=== PATIENT | male | born 1980 | race Caucasian/White ===

== ENCOUNTER 2017-08-07 18:14 | Emergency (ER) | payer BC ==
--- NOTE | 2017-08-07 18:55 | EDM.PDOC ---
ED HPI GENERAL MEDICAL PROBLEM - General Chief Complaint: Abdominal Pain Stated Complaint: [id number] EXTREME STOMACH PAIN Time Seen by Provider: 08/07/17 18:50 Source of Information: Reports: Patient History Limitations: Reports: No Limitations - History of Present Illness INITIAL COMMENTS - FREE TEXT/NARRATIVE: states woke up with epiG pain last night unable to sleep till 10am. been having pain with N/V on-off since then last vomiting 3 hours ago. able to hold down some crackers today. also gives h/o low H/H and needed transfusion. was told low H/H due to alcoholism and pancreatitis. just stopped drinking 3 weeks ago. Middle Anterior Abdomen Pain Score (Numeric/FACES): 3 - Related Data Allergies Allergy/AdvReac Type Severity Reaction Status Date / Time No Known Allergies Allergy Verified 07/28/17 17:15 Home Meds: Home Meds Metoprolol Succinate 25 mg PO DAILY 07/28/17 [History] Omeprazole Magnesium [Prilosec Otc] 20 mg PO DAILY 07/28/17 [History] traZODone HCl [Trazodone HCl] 50 mg PO DAILY 07/28/17 [History] Past Medical History - Past Health History Medical/Surgical History: Denies Medical/Surgical History Cardiovascular History: Reports: Hypertension Gastrointestinal History: Reports: GERD Psychiatric History: Reports: Addiction, Other (See Below) Other Psychiatric History: ETOH abuse history - Infectious Disease History Infectious Disease History: Reports: Chicken Pox Social & Family History - Family History Family Medical History: Noncontributory - Tobacco Use Smoking Status *Q: Heavy Tobacco Smoker Years of Tobacco use: 15 Packs/Tins Daily: 0.5 - Caffeine Use Caffeine Use: Reports: Soda ED ROS GENERAL - Review of Systems Review Of Systems: ROS reveals no pertinent complaints other than HPI. ED EXAM, GI/ABD - Physical Exam Exam: See Below Exam Limited By: No Limitations General Appearance: Alert, WD/WN, Mild Distress, Other (discomfort) Ears: Hearing Grossly Normal Throat/Mouth: Normal Voice, No Airway Compromise Head: Atraumatic Neck: Non-Tender, Full Range of Motion Respiratory/Chest: No Respiratory Distress Cardiovascular: Regular Rate, Rhythm GI/Abdominal Exam: Soft, Tender, Other (minor epig discomfort, BS hyper). No: Distended, Guarding, Rigid, Rebound Neurological: Alert, Oriented, Normal Cognition, Normal Gait, No Motor/Sensory Deficits Psychiatric: Normal Affect, Normal Mood Skin Exam: Warm, Dry, Normal Color Lymphatic: No Adenopathy Course - Vital Signs Last Recorded V/S: Last Vital Signs Temp 37.7 C 08/07/17 18:30 Pulse 105 H 08/07/17 18:30 Resp 20 08/07/17 18:30 BP 139/78 08/07/17 18:30 Pulse Ox 100 08/07/17 18:30 - Orders/Labs/Meds Orders: Active Orders 24 hr Category Date Time Status Sodium Chloride 0.9% [Normal Saline] 1,000 ml Med 08/07/17 20:00 Active IV ASDIRECTED Medication Orders Sodium Chloride (Normal Saline) 1,000 mls @ 250 mls/hr IV ASDIRECTED SHANNAN Last Admin: 08/07/17 20:16 Dose: 250 mls/hr Labs: Laboratory Tests 08/07/17 08/07/17 Range/Units 18:56 18:56 WBC 7.0 (5.0-10.0) 10^3/uL RBC 2.88 L (4.6-6.2) 10^6/uL Hgb 6.5 L* D (14.0-18.0) g/dL Hct 23.5 L (40.0-54.0) % MCV 81.6 (80-100) fL MCH 22.6 L (27.0-34.0) pg MCHC 27.7 L (33.0-35.0) g/dL Plt Count 463 H (150-450) 10^3/uL Neut % (Auto) 72.7 (42.2-75.2) % Lymph % (Auto) 13.4 L (20.5-50.1) % [place] % (Auto) 11.5 H (2-8) % Eos % (Auto) 1.7 (1.0-3.0) % Baso % (Auto) 0.7 (0.0-1.0) % Sodium 136 (135-145) mmol/L Potassium 3.4 L (3.6-5.0) mmol/L Chloride 101 (101-111) mmol/L Carbon Dioxide 23.0 (21.0-31.0) mmol/L Anion Gap 15.4 BUN 12 (7-18) mg/dL Creatinine 0.7 (0.6-1.3) mg/dL Est Cr Clr Drug Dosing 143.08 mL/min Estimated GFR (MDRD) > 60 BUN/Creatinine Ratio 17.14 Glucose 112 H (74-105) mg/dL Calcium 9.8 (8.4-10.2) mg/dl Total Bilirubin 0.3 (0.2-1.0) mg/dL AST 17 (10-42) IU/L ALT 14 (10-60) IU/L Alkaline Phosphatase 41 L (42-121) IU/L Total Protein 7.1 (6.7-8.2) g/dl Albumin 4.2 (3.2-5.5) g/dl Globulin 2.9 Albumin/Globulin Ratio 1.45 Amylase 92 (28-100) U/L Lipase 85 H (22-51) U/L Meds: Medications Generic Name Dose Route Start Last Admin Trade Name Freq PRN Reason Stop Dose Admin Sodium Chloride 1,000 mls @ 250 mls/hr 08/07/17 20:00 08/07/17 20:16 Normal Saline IV 250 mls/hr ASDIRECTED SHANNAN Administration Discontinued Medications Generic Name Dose Route Start Last Admin Trade Name Freq PRN Reason Stop Dose Admin Sodium Chloride 1,000 mls @ 999 mls/hr 08/07/17 18:56 08/07/17 19:07 Normal Saline IV 08/07/17 19:56 999 mls/hr .BOLUS ONE Administration Iopamidol 75 ml 08/07/17 19:44 08/07/17 19:50 Isovue-300 (61%) IVPUSH 08/07/17 19:45 75 ml ONETIME ONE Administration Ondansetron HCl 4 mg 08/07/17 18:56 08/07/17 19:09 Zofran IV 08/07/17 18:57 4 mg ONETIME ONE Administration - Re-Assessments/Exams Free Text/Narrative Re-Assessment/Exam: 08/07/17 21:[address] Gibson who rec' ER eval' Dr Muro ER @ kindly accept pt Departure - Departure Time of Disposition: 21:05 Disposition: DC/Tfer to Acute Hospital 02 Condition: Good Clinical Impression: Aneurysm of pancreaticoduodenal artery, Low hemoglobin - Discharge Information Forms: Interfacility Transfer EMTALA - My Orders Last 24 Hours: My Active Orders 08/07/17 20:00 Sodium Chloride 0.9% [Normal Saline] 1,000 ml IV ASDIRECTED - Assessment/Plan Last 24 Hours: My Active Orders 08/07/17 20:00 Sodium Chloride 0.9% [Normal Saline] 1,000 ml IV ASDIRECTED
[2017-08-07] MEDS ORDERED: Sodium Chloride 0.9% 1,000 ML IV ONE (18:56)
[2017-08-07] MEDS ORDERED: Ondansetron 4 MG/2 ML SDV IV ONE (18:56)
[2017-08-07 19:28] LABS: CHLORIDE,CL 101 mmol/L (101-111); SODIUM,NA 136 mmol/L (135-145)
[2017-08-07] MEDS ORDERED: Iopamidol 612 MG/ML 75 ML Bottle IVPUSH ONE (19:44)
[2017-08-07] MEDS ORDERED: Sodium Chloride 0.9% 1,000 ML IV SCH (20:00)
== END 2017-08-07 21:32 ==
LOC: DL.ED 18:14
DX: I72.8 Aneurysm of other specified arteries (principal); D64.9 Anemia, unspecified; I10 Essential (primary) hypertension; F17.210 Nicotine dependence, cigarettes, uncomplicated; Z79.899 Other long term (current) drug therapy
CPT/HCPCS: 36415; 74177; 80053; 82150; 83690; 85025; 96361; 96374; 99285; J2405; J7030; Q9967

== ENCOUNTER 2018-04-03 08:12 | Emergency (ER) | payer BC, MEDICAID ==
--- NOTE | 2018-04-03 08:33 | EDM.PDOC ---
ED HPI GENERAL MEDICAL PROBLEM - General Chief Complaint: Abdominal Pain Stated Complaint: STOMACH ISSUES Time Seen by Provider: 04/03/18 08:33 Source of Information: Reports: Patient, RN, RN Notes Reviewed History Limitations: Reports: No Limitations - History of Present Illness INITIAL COMMENTS - FREE TEXT/NARRATIVE: Pt to ER with c/o epigastric pain. Patient states the pain began abruptly at 0100 this morning. He states he was drinking some alcohol last evening, with the last drink being at midnight. Patient states the pain is a dull ache, feels like a know in the epigastric area. Patient admits to nausea and vomiting. Denies any diarrhea. Denies noticing blood in the vomit or the stool. Patient states last BM was last evening about 1800 and was normal for him. Patient denies fever or chills, chest pain or SOB. Patient states he takes Prilosec on a daily basis, and that he used TUMS during the night which helped for a bit, until he vomited. Onset: Sudden Onset Date: 04/03/18 Onset Time: 01:00 Duration: Constant Location: Reports: Abdomen Quality: Reports: Ache, Dull Severity: Moderate Improves with: Reports: Medication (tums) Worsens with: Reports: None Associated Symptoms: Reports: Loss of Appetite, Nausea/Vomiting Treatments PARTS CATALOGER: Reports: Home Treatments Epigastric Pain Score (Numeric/FACES): 6 - Related Data Allergies Allergy/AdvReac Type Severity Reaction Status Date / Time No Known Allergies Allergy Verified 04/03/18 08:31 Home Meds: Home Meds Metoprolol Succinate 25 mg PO DAILY 07/28/17 [History] Omeprazole Magnesium [Prilosec Otc] 20 mg PO DAILY 07/28/17 [History] traZODone HCl [Trazodone HCl] 50 mg PO DAILY PRN 07/28/17 [History] Past Medical History - Past Health History Medical/Surgical History: Denies Medical/Surgical History Cardiovascular History: Reports: Hypertension Gastrointestinal History: Reports: GERD Psychiatric History: Reports: Addiction, Other (See Below) Other Psychiatric History: ETOH abuse history - Infectious Disease History Infectious Disease History: Reports: Chicken Pox Social & Family History - Family History Family Medical History: Noncontributory - Caffeine Use Caffeine Use: Reports: Soda ED ROS GENERAL - Review of Systems Review Of Systems: ROS reveals no pertinent complaints other than HPI. ED EXAM, GI/ABD - Physical Exam Exam: See Below Exam Limited By: No Limitations General Appearance: Alert, WD/WN, No Apparent Distress Eyes: Bilateral: Normal Appearance, EOMI Ears: Normal External Exam, Hearing Grossly Normal Nose: Normal Inspection Throat/Mouth: Normal Inspection, Normal Voice, No Airway Compromise Head: Atraumatic, Normocephalic Neck: Normal Inspection, Supple, Non-Tender, Full Range of Motion Respiratory/Chest: No Respiratory Distress, Lungs Clear, Normal Breath Sounds, No Accessory Muscle Use, Chest Non-Tender Cardiovascular: Normal Peripheral Pulses, Regular Rate, Rhythm, No Edema, No Gallop, No JVD, No Murmur, No Rub GI/Abdominal Exam: Normal Bowel Sounds, Rigid (epigastrum), Tender (epigastrum) (Male) Exam: Deferred Rectal (Males) Exam: Deferred Back Exam: Normal Inspection, Full Range of Motion Extremities: Normal Inspection, Normal Range of Motion, Non-Tender, No Pedal Edema, Normal Capillary Refill Neurological: Alert, Oriented, CN II-XII Intact, Normal Cognition, Normal Gait, Normal Reflexes, No Motor/Sensory Deficits Psychiatric: Normal Affect, Normal Mood, Anxious Skin Exam: Warm, Dry, Intact, Normal Color, No Rash Lymphatic: No Adenopathy Course - Vital Signs Last Recorded V/S: Last Vital Signs Temp 97.2 F 04/03/18 11:16 Pulse 66 04/03/18 11:16 Resp 16 04/03/18 11:16 BP 157/92 H 04/03/18 11:16 Pulse Ox 98 04/03/18 11:16 - Orders/Labs/Meds Orders: Active Orders 24 hr Category Date Time Status Peripheral IV Care [RC] . DIRECTED Care 04/03/18 08:42 Active Peripheral IV Insertion Adult [OM.PC] Stat Oth 04/03/18 08:42 Ordered Labs: Laboratory Tests 04/03/18 04/03/18 04/03/18 Range/Units 08:52 08:52 08:52 WBC 4.8 L (5.0-10.0) 10^3/uL RBC 3.99 L (4.6-6.2) 10^6/uL Hgb 9.3 L D (14.0-18.0) g/dL Hct 30.2 L (40.0-54.0) % MCV 75.7 L D (80-100) fL MCH 23.3 L (27.0-34.0) pg MCHC 30.8 L (33.0-35.0) g/dL Plt Count 214 D (150-450) 10^3/uL Neut % (Auto) 72.9 (42.2-75.2) % Lymph % (Auto) 14.7 L (20.5-50.1) % [place] % (Auto) 9.5 H (2-8) % Eos % (Auto) 2.3 (1.0-3.0) % Baso % (Auto) 0.6 (0.0-1.0) % Sodium 140 (135-145) mmol/L Potassium 3.2 L (3.6-5.0) mmol/L Chloride 98 L (101-111) mmol/L Carbon Dioxide 28.0 (21.0-31.0) mmol/L Anion Gap 17.2 BUN 7 (7-18) mg/dL Creatinine 1.0 (0.6-1.3) mg/dL Est Cr Clr Drug Dosing 98.62 mL/min Estimated GFR (MDRD) > 60 BUN/Creatinine Ratio 7.00 Glucose 124 H (74-105) mg/dL Calcium 10.5 H (8.4-10.2) mg/dl Total Bilirubin 0.5 (0.2-1.0) mg/dL AST 17 (10-42) IU/L ALT 12 (10-60) IU/L Alkaline Phosphatase 93 (42-121) IU/L Total Protein 7.6 (6.7-8.2) g/dl Albumin 4.2 (3.2-5.5) g/dl Globulin 3.4 Albumin/Globulin Ratio 1.24 Amylase 138 H (28-100) U/L Lipase 187 H (22-51) U/L Urine Color (YELLOW) Urine Appearance (CLEAR) Urine pH (5.0-9.0) Ur Specific [place] (1.005-1.030) Urine Protein (NEGATIVE) Urine Glucose (UA) (NEGATIVE) Urine Ketones (NEGATIVE) Urine Occult Blood (NEGATIVE) Urine Nitrite (NEGATIVE) Urine Bilirubin (NEGATIVE) Urine Urobilinogen (0.2-1.0) mg/dL Ur Leukocyte Esterase (NEGATIVE) Urine RBC /HPF Urine WBC (0-5/HPF) /HPF Ur Epithelial Cells /HPF Amorphous Sediment (0/HPF) /HPF Urine Bacteria (0-FEW/HPF) /HPF Granular Casts /LPF Urine Mucus /LPF Urine Opiates Screen (NEGATIVE) Ur Oxycodone Screen (NEGATIVE) Urine Methadone Screen (NEGATIVE) Ur Barbiturates Screen (NEGATIVE) U Tricyclic Antidepress (NEGATIVE) Ur Phencyclidine Scrn (NEGATIVE) Ur Amphetamine Screen (NEGATIVE) U Methamphetamines Scrn (NEGATIVE) Urine MDMA Screen (NEGATIVE) U Benzodiazepines Scrn (NEGATIVE) Urine Cocaine Screen (NEGATIVE) U Marijuana (THC) Screen (NEGATIVE) Ethyl Alcohol 107 mg/dL 04/03/18 04/03/18 Range/Units 09:28 09:28 WBC (5.0-10.0) 10^3/uL RBC (4.6-6.2) 10^6/uL Hgb (14.0-18.0) g/dL Hct (40.0-54.0) % MCV (80-100) fL MCH (27.0-34.0) pg MCHC (33.0-35.0) g/dL Plt Count (150-450) 10^3/uL Neut % (Auto) (42.2-75.2) % Lymph % (Auto) (20.5-50.1) % [place] % (Auto) (2-8) % Eos % (Auto) (1.0-3.0) % Baso % (Auto) (0.0-1.0) % Sodium (135-145) mmol/L Potassium (3.6-5.0) mmol/L Chloride (101-111) mmol/L Carbon Dioxide (21.0-31.0) mmol/L Anion Gap BUN (7-18) mg/dL Creatinine (0.6-1.3) mg/dL Est Cr Clr Drug Dosing mL/min Estimated GFR (MDRD) BUN/Creatinine Ratio Glucose (74-105) mg/dL Calcium (8.4-10.2) mg/dl Total Bilirubin (0.2-1.0) mg/dL AST (10-42) IU/L ALT (10-60) IU/L Alkaline Phosphatase (42-121) IU/L Total Protein (6.7-8.2) g/dl Albumin (3.2-5.5) g/dl Globulin Albumin/Globulin Ratio Amylase (28-100) U/L Lipase (22-51) U/L Urine Color Yellow (YELLOW) Urine Appearance Cloudy (CLEAR) Urine pH 7.0 (5.0-9.0) Ur Specific [place] 1.025 (1.005-1.030) Urine Protein 30 H (NEGATIVE) Urine Glucose (UA) Negative (NEGATIVE) Urine Ketones Negative (NEGATIVE) Urine Occult Blood Negative (NEGATIVE) Urine Nitrite Negative (NEGATIVE) Urine Bilirubin Negative (NEGATIVE) Urine Urobilinogen 0.2 (0.2-1.0) mg/dL Ur Leukocyte Esterase Negative (NEGATIVE) Urine RBC Not seen /HPF Urine WBC Not seen (0-5/HPF) /HPF Ur Epithelial Cells Few /HPF Amorphous Sediment Many (0/HPF) /HPF Urine Bacteria Rare (0-FEW/HPF) /HPF Granular Casts Moderate /LPF Urine Mucus Few H /LPF Urine Opiates Screen Negative (NEGATIVE) Ur Oxycodone Screen Negative (NEGATIVE) Urine Methadone Screen Negative (NEGATIVE) Ur Barbiturates Screen Negative (NEGATIVE) U Tricyclic Antidepress Negative (NEGATIVE) Ur Phencyclidine Scrn Negative (NEGATIVE) Ur Amphetamine Screen Negative (NEGATIVE) U Methamphetamines Scrn Negative (NEGATIVE) Urine MDMA Screen Negative (NEGATIVE) U Benzodiazepines Scrn Negative (NEGATIVE) Urine Cocaine Screen Negative (NEGATIVE) U Marijuana (THC) Screen Positive H (NEGATIVE) Ethyl Alcohol mg/dL stool for occult blood: Negative Meds: Medications Discontinued Medications Generic Name Dose Route Start Last Admin Trade Name Freq PRN Reason Stop Dose Admin Famotidine 20 mg 04/03/18 08:42 04/03/18 08:58 Pepcid IVPUSH 04/03/18 08:43 20 mg ONETIME ONE Administration Hydromorphone HCl 1 mg 04/03/18 13:03 04/03/18 13:12 Dilaudid IVPUSH 04/03/18 13:04 1 mg ONETIME ONE Administration Hydromorphone HCl 1 mg 04/03/18 15:18 04/03/18 15:26 Dilaudid IVPUSH 04/03/18 15:19 1 mg ONETIME ONE Administration Sodium Chloride 1,000 mls @ 999 mls/hr 04/03/18 12:56 04/03/18 14:15 Normal Saline IV 04/03/18 13:56 Infused .BOLUS ONE Infusion Iopamidol 75 ml 04/03/18 09:38 04/03/18 09:47 Isovue-300 (61%) IVPUSH 04/03/18 09:39 75 ml ONETIME ONE Administration Ondansetron HCl 4 mg 04/03/18 13:49 04/03/18 13:53 Zofran IV 04/03/18 13:50 4 mg ONETIME ONE Administration Sodium Chloride 10 ml 04/03/18 08:42 04/03/18 15:25 Saline Flush FLUSH 10 ml ASDIRECTED PRN Administration Keep Vein Open - Radiology Interpretation Free Text/Narrative:: CT Abdomen/Pelvis with contrast: Probable nonobstructing choledocholithiasis. Large new midepigastric hematoma ( evidence of adjacent surgery. Fatty Liver. See rad report - Re-Assessments/Exams Free Text/Narrative Re-Assessment/Exam: 04/03/18 13:29 Discussed patient case with Dr. Payne at [facility] who states she feels the patient would need an ERCP or EUS with possible stent. [facility] will not have GI services until Friday. She feels the patient would be better served at [place]. Patient case was discussed with Dr. Mao, GI at [facility]. He states he feels the patient has an acute pancreatitis and does not necessarily need to be transferred to [place], but that they would gladly accept the patient under a hospitalist. Patient case was discussed with Dr. Gary at [facility], who agreed to accept the patient for transfer. Departure - Departure Time of Disposition: 15:56 Disposition: DC/Tfer to [facility] 02 Condition: Fair Clinical Impression: Epigastric pain, Aneurysm of pancreaticoduodenal artery, Low hemoglobin - Discharge Information *PRESCRIPTION DRUG MONITORING PROGRAM REVIEWED*: No *COPY OF PRESCRIPTION DRUG MONITORING REPORT IN PATIENT JIMMY: No Referrals: PCP,None [Primary Care Provider] - Forms: ED Department Discharge, Interfacility Transfer [place] - My Orders Last 24 Hours: My Active Orders 04/03/18 08:42 Peripheral IV Care [RC] . DIRECTED Peripheral IV Insertion Adult [OM.PC] Stat - Assessment/Plan Last 24 Hours: My Active Orders 04/03/18 08:42 Peripheral IV Care [RC] . DIRECTED Peripheral IV Insertion Adult [OM.PC] Stat
[2018-04-03] MEDS ORDERED: Famotidine 20 MG/2 ML SDV IVPUSH ONE (08:42)
[2018-04-03] MEDS: Sodium Chloride 0.9% 10 ML Syringe FLUSH PRN ×3 (08:58→15:25)
[2018-04-03 09:18] LABS: ANION GAP 17.2; CHLORIDE,CL 98 mmol/L (101-111); SODIUM,NA 140 mmol/L (135-145)
[2018-04-03] MEDS ORDERED: Iopamidol 612 MG/ML 75 ML Bottle IVPUSH ONE (09:38)
--- NOTE | 2018-04-03 11:12 | CT ---
Clinical history: 37-year-old hypertensive 155 pound male with abdominal pain reported on previous CT scan abdomen 07 Aug 2017 to have "ill-definition/ductal dilatation of the pancreas; and 2 cm diameter pseudoaneurysm pancreaticoduodenal artery possibly secondary to chronic pancreatitis, unstable". Surgery July 2017 this afebrile patient with a WBC of 4800 and abnormally elevated serum amylase/lipase and abnormally low hemoglobin (9.3 mg (. Reevaluate please. Scan technique: Volume acquisition of data from the abdomen and pelvis obtained without oral contrast but during/after intravenous administration 75 cc nonionic Isovue contrast (2.5 cc/s via injector) while the patient was lying supine on the Siemens multi slice scanner [place], [place]. All data archived in the PACS system for storage, reformatting axial/sagittal/coronal planes and study. Interpretation: Abnormal. 1. New cluster of surgical duane midepigastrium immediately anterior to the upper abdominal aorta below origin renal arteries. 2. *Huge (4.5 x 5.5 cm diameter) low attenuation near water density anterior midepigastric "mass" (probably hematoma, although pancreatic phlegmon a differential consideration) head of the pancreas with associated abnormal pancreatic duct dilatation. 3. Apparent gallstone RUQ that has moved from the lumen of the gallbladder (07 Aug 2017) to the proximal common bile duct. 4. No intrahepatic biliary duct dilatation this large fatty liver. Stomach, spleen, tail of pancreas and adrenal glands unremarkable. 5. Normal reniform size axis and configuration. No sign of renal cortical mass lesion, nephrolithiasis or obstructive uropathy. Symmetrically distended normal appearing urinary bladder. No ascites. No sign of mechanical bowel obstruction. 6. Normal caliber aortoiliac vessels. No aneurysm or dissection. Chronic L5-S1 disc disease. Spondylosis lumbar spine. CONCLUSION: Probable nonobstructing choledocholithiasis. Large new midepigastric hematoma (evidence of adjacent surgery). Fatty liver.
[2018-04-03] MEDS ORDERED: Sodium Chloride 0.9% 1,000 ML IV ONE (12:56)
[2018-04-03] MEDS ORDERED: HYDROmorphone 1 MG/ML Syringe IVPUSH ONE ×2 (13:03→15:18)
[2018-04-03] MEDS ORDERED: Ondansetron 4 MG/2 ML SDV IV ONE (13:49)
== END 2018-04-03 15:45 ==
LOC: DL.ED 08:12
DX: I72.8 Aneurysm of other specified arteries (principal); D64.9 Anemia, unspecified; I10 Essential (primary) hypertension; K21.9 Gastro-esophageal reflux disease without esophagitis; Z79.899 Other long term (current) drug therapy
CPT/HCPCS: 36415; 74177; 80053; 80305; 81001; 82150; 82272; 83690; 85025; 96365; 96375; 96376; 99285; G0480; J1170; J2405; J3490; J7030; Q9967

== ENCOUNTER 2018-05-14 06:53 | Day surgery (SDC) | payer MEDICAID ==
[~2018-05-14 06:53] MED LIST: Dextrose 5%-0.45% NaCl 1,000 ML IV SCH; Midazolam 1 MG/ML 2 ML SDV ONE; Sodium Chloride 0.9% 10 ML Syringe FLUSH PRN; fentaNYL 100 MCG/2 ML SDV ONE
[2018-05-14] MEDS ORDERED: Midazolam 1 MG/ML 2 ML SDV IV ONE ×3 (06:54→08:15)
[2018-05-14] MEDS ORDERED: fentaNYL 100 MCG/2 ML SDV IV ONE ×3 (06:54→08:14)
--- NOTE | 2018-05-14 13:40 | OR ---
DATE: 05/14/2018 PROCEDURE: Esophagogastroduodenoscopy and multiple pinch biopsies. INSTRUMENT USED: [id number]-HQ190 Olympus video panendoscope. PREMEDICATIONS: No oral topical anesthesia used. Fentanyl 100 mcg intravenous, Versed 2 mg intravenous. Nasal O2 cannula. The procedure was done under pulse oximetry, BP recording, and court recording monitor. INDICATION: The patient with previous alcoholism and iron-deficiency anemia, unexplained and not responsive to medical measures. Esophagogastroduodenoscopy is performed for detection of any active erosive lesions, Whitten esophagus and/or malignancy also under consideration. H. pylori status to be determined, small bowel biopsies to be obtained for celiac disease if indicated, endoscopic hemostasis therapy if needed. DESCRIPTION OF PROCEDURE: The scope was passed with ease. Adequate visualization of the esophagus was made from proximal to distal areas. No upper esophageal lesions identified. No distal esophageal stricture. No uphill or downhill esophageal varices. No Madeline-Godwin tear. No evidence of erosive esophagitis by Bowman criteria. No esophageal polyp or tumor mass identified. Z-line was seen at around 39 cm distal to the oral verge, configuration consistent with grade 1 by ZAP classification. No proximal gastric varices noted. Gastric fundus examination by retroflexion showed no polypoid lesions. The examination of the gastric mucosa was a bit limited due to the presence of some solid food material that could not be aspirated clear. No gastric ulcer, malignant mass, or vascular ectasia identified. Duodenal bulb showed no ulcer. Visualized second part of the duodenum was unremarkable. Multiple pinch biopsies, 4 in number, were taken from different areas of the second part of the duodenum and tissues were also obtained from the duodenal bulb at 9 o'clock and 12 o'clock positions and sent for any histopathologic evidence of celiac disease. Multiple pinch biopsies were also taken from the gastric antrum and proximal body and sent for PyloriTek test for H. pylori and histopathology. No bleeding was noted from any of the visualized areas at the completion of examination. Photographs were taken of the duodenal bulb, gastric antrum, fundus, and distal esophagus. IMPRESSION: Gastric food retention. The patient tolerated the procedure well. [facility] /[id number]
== END 2018-05-14 10:27 | disposition home or self-care (01) ==
LOC: DL.ENDO 06:53
PROVIDERS: ATTEND Internal Medicine Gastroenterology
DX: D50.9 Iron deficiency anemia, unspecified (principal); K31.89 Other diseases of stomach and duodenum; K86.2 Cyst of pancreas; K86.1 Other chronic pancreatitis
CPT/HCPCS: 43239; 87077; J2250; J3010; J7042

== ENCOUNTER 2020-05-07 11:58 | Emergency (ER) | payer BC, MEDICAID ==
[2020-05-07] MEDS ORDERED: Ketorolac 30 MG/ML SDV IM ONE (12:35)
--- NOTE | 2020-05-07 12:43 | EDM.PDOC ---
ED HPI GENERAL MEDICAL PROBLEM - General Chief Complaint: Back Pain or Injury Stated Complaint: LOWER BACK PAIN Time Seen by Provider: 05/07/20 12:38 Source of Information: Reports: Patient History Limitations: Reports: No Limitations - History of Present Illness INITIAL COMMENTS - FREE TEXT/NARRATIVE: This 39 yo male patient reports to the ED with left lower lateral back pain. The patient reports he has been working with a chiropractor over he past month and was feeling pretty good until yesterday morning. Yesterday morning, the patient reports he sneezed and has been having intermittent lower back pain since that time. The patient did take ibuprofen yesterday with some symptom relief, but was encouraged to be seen by family today. Onset Date: 05/06/20 Duration: Constant Location: Reports: Back (left lateral lower back) Quality: Reports: Ache, Dull Severity: Moderate Improves with: Reports: None Worsens with: Reports: None Context: Reports: Other Associated Symptoms: Reports: No Other Symptoms Left Back Pain Score (Numeric/FACES): 3 - Related Data Allergies Allergy/AdvReac Type Severity Reaction Status Date / Time No Known Allergies Allergy Verified 05/07/20 12:10 Past Medical History - Past Health History Medical/Surgical History: Denies Medical/Surgical History HEENT History: Reports: None Cardiovascular History: Reports: Aneurysm, Hypertension, Other (See Below) Other Cardiovascular History: ABDOMINAL ANERUYSM Respiratory History: Reports: None Gastrointestinal History: Reports: GERD Genitourinary History: Reports: None Musculoskeletal History: Reports: None Neurological History: Reports: None Psychiatric History: Reports: Addiction, Anxiety, Other (See Below) Other Psychiatric History: ETOH abuse history Endocrine/Metabolic History: Reports: Other (See Below) Other Endocrine/Metabolic History: PANCREATITIS Hematologic History: Reports: Anemia, Blood Transfusion(s) Immunologic History: Reports: None Oncologic (Cancer) History: Reports: None Dermatologic History: Reports: None - Infectious Disease History Infectious Disease History: Reports: Chicken Pox - Past Surgical History HEENT Surgical History: Reports: None Cardiovascular Surgical History: Reports: None Respiratory Surgical History: Reports: None GI Surgical History: Reports: Other (See Below) Other GI Surgeries/Procedures: artery leading to pancreas, pt unsure of details, sx in May 2017. STENT PLACED IN PANCREAS 2018 Male Surgical History: Reports: Circumcision Social & Family History - Family History Family Medical History: No Pertinent Family History - Tobacco Use Tobacco Use Status *Q: Never Tobacco User - Caffeine Use Caffeine Use: Reports: Coffee ED ROS GENERAL - Review of Systems Review Of Systems: Comprehensive ROS is negative, except as noted in HPI. ED EXAM,LOWER BACK PAIN/INJURY - Physical Exam Exam: See Below Exam Limited By: No Limitations General Appearance: Alert, WD/WN, No Apparent Distress Eye Exam: Bilateral Eye: EOMI, Normal Inspection, PERRL Ears: Normal External Exam, Normal Canal, Hearing Grossly Normal, Normal TMs Nose: Normal Inspection, Normal Mucosa, No Blood Throat/Mouth: Normal Inspection, Normal Lips, Normal Teeth, Normal Gums, Normal Oropharynx, Normal Voice, No Airway Compromise Head: Atraumatic, Normocephalic Neck: Normal Inspection, Supple, Non-Tender, Full Range of Motion Respiratory/Chest: No Respiratory Distress, Lungs Clear, Normal Breath Sounds, No Accessory Muscle Use, Chest Non-Tender Cardiovascular: Normal Peripheral Pulses, Regular Rate, Rhythm, No Edema, No Gallop, No JVD, No Murmur, No Rub GI/Abdominal: Normal Bowel Sounds, Soft, Non-Tender, No Organomegaly, No Distention, No Abnormal Bruit, No Mass (Male) Exam: Deferred Rectal (Males) Exam: Deferred Back Exam: Muscle Spasm, Paraspinal Tenderness (left lower back) Extremities: Normal Inspection, Normal Range of Motion, Non-Tender, No Pedal Edema, Normal Capillary Refill Neurological: Alert, Normal Mood/Affect, Normal Dorsiflexion, CN II-XII Intact, Normal Plantar Flexion, Normal Gait, Normal Reflexes, No Motor/Sensory Deficits, Oriented x 3 Psychiatric: Normal Affect, Normal Mood Skin Exam: Warm, Dry, Intact, Normal Color, No Rash Lymphatic: No Adenopathy Course - Vital Signs Last Recorded V/S: Last Vital Signs Temp 37.2 C 05/07/20 12:05 Pulse 105 H 05/07/20 12:05 Resp 14 05/07/20 12:05 BP 130/94 H 05/07/20 12:05 Pulse Ox 97 05/07/20 12:05 - Orders/Labs/Meds Meds: Medications Discontinued Medications Generic Name Dose Route Start Last Admin Trade Name Freq PRN Reason Stop Dose Admin Ketorolac Tromethamine 30 mg 05/07/20 12:35 Toradol IM 05/07/20 12:36 ONETIME ONE Departure - Departure Time of Disposition: 12:45 Disposition: Home, Self-Care 01 Condition: Fair Clinical Impression: Low back strain Qualifiers: Encounter type: initial encounter Qualified Code(s): S39.012A - Strain of muscle, fascia and tendon of lower back, initial encounter - Discharge Information *PRESCRIPTION DRUG MONITORING PROGRAM REVIEWED*: Not Applicable *COPY OF PRESCRIPTION DRUG MONITORING REPORT IN PATIENT JIMMY: Not Applicable Instructions: Muscle Strain, [id number] Care Plan Goals: The patient was advised of the examination results during the visit. The patient was given an injection of Toradol while in the ED and discharged with a script for Toradol (10 mg) #20 to take 1 by mouth every 6 hours and Flexeril (5 mg) #20 to take 1 by mouth at bedtime as needed. If the patient has any additional symptoms or concerns, the patient should either return to the emergency department or visit his primary care facility. Sepsis Event Note (ED) - Evaluation Sepsis Screening Result: No Definite Risk - Focused Exam Vital Signs: Vital Signs Temp Pulse Resp BP Pulse Ox 05/07/20 12:05 37.2 C 105 H 14 130/94 H 97
== END 2020-05-07 12:54 | disposition home or self-care (01) ==
LOC: DL.ED 11:58
DX: S39.012A Strain of muscle, fascia and tendon of lower back, initial encounter (principal); I10 Essential (primary) hypertension; X58.XXXA Exposure to other specified factors, initial encounter
CPT/HCPCS: 96372; 99283; J1885; 99282